=== PATIENT | female | born 1990 | race Caucasian/White ===

== ENCOUNTER 2018-06-30 06:25 | Inpatient (IN) | payer BC ==
[2018-06-30] MEDS ORDERED: CEFAZOLIN 1 GM INJ (07:00)
[2018-06-30] MEDS ORDERED: DEXAMETHASONE 4 MG/ML 1 ML INJ ×2 (07:00→08:47)
[2018-06-30] MEDS ORDERED: SURGIFOAM POWDER 1 GM KIT (07:28)
[2018-06-30] MEDS: HEPARIN 1000 UNITS/ML 10 ML INJ (07:29)
[2018-06-30] MEDS: GELATIN SIZE 100 SPONGE (07:29)
[2018-06-30] MEDS: THROMBIN 5000 UNIT VIAL (07:29)
[2018-06-30] MEDS: CEFAZOLIN 1 GM INJ (07:29)
[2018-06-30] MEDS ORDERED: BUPIVACAINE 0.25%/EPI (SDV) 30 ML INJ (07:29)
[2018-06-30] MEDS: CA CHLORIDE 10% 10 ML SYRINGE (07:29)
[2018-06-30] MEDS ORDERED: SUCCINYLCHOLINE CHLORIDE 100 MG/5 ML SYG IV (07:58)
[2018-06-30] MEDS ORDERED: ROCURONIUM 50 MG INJ ×2 (07:58→09:15)
[2018-06-30] MEDS ORDERED: PROPOFOL 20 ML (07:58)
[2018-06-30] MEDS ORDERED: LIDOCAINE 2% (SDV) 5 ML INJ (07:58)
[2018-06-30] MEDS ORDERED: MIDAZOLAM 1 MG/ML 2 ML INJ (07:59)
[2018-06-30] MEDS ORDERED: HYDROmorphONE 0.5 MG/0.5 ML SYG IV (08:00)
[2018-06-30] MEDS ORDERED: PROCHLORPERAZINE 10 MG TAB PO (08:00)
[2018-06-30] MEDS ORDERED: ACETAMINOPHEN 325 MG TAB PO (08:00)
[2018-06-30] MEDS ORDERED: DIPHENHYDRAMINE 25 MG CAP PO (08:00)
[2018-06-30] MEDS ORDERED: NALOXONE (0.4 MG/ML) INJ IV (08:00)
[2018-06-30] MEDS ORDERED: DIPHENHYDRAMINE 50 MG INJ IV ×2 (08:00→12:00)
[2018-06-30] MEDS ORDERED: FAMOTIDINE 20 MG INJ (08:47)
[2018-06-30] MEDS ORDERED: ONDANSETRON 4 MG INJ (08:47)
[2018-06-30] MEDS ORDERED: HYDROmorphONE 2 MG/ML SYG (10:05)
[2018-06-30] MEDS ORDERED: SUGAMMADEX SODIUM 200 MG/2 ML VIAL IV (11:09)
[2018-06-30] MEDS ORDERED: EPHEDrine SULFATE 50 MG/5 ML SYG (11:10)
[2018-06-30] MEDS ORDERED: FENTAnyl 50 MCG/ML VIAL (11:46)
[2018-06-30] MEDS: FENTAnyl 50 MCG/ML VIAL IV ×2 (11:52→12:08)
[2018-06-30] MEDS ORDERED: PROCHLORPERAZINE 10 MG INJ IV (12:00)
[2018-06-30] MEDS ORDERED: HYDROmorphONE 1 MG/5 ML IV SYRINGE IV ×2 (12:00)
[2018-06-30] MEDS ORDERED: ONDANSETRON 4 MG INJ IV (12:00)
[2018-06-30] MEDS ORDERED: FENTAnyl 50 MCG/ML VIAL IV ×2 (12:00)
[2018-06-30] MEDS: HYDROmorphONE 1 MG/5 ML IV SYRINGE IV (12:14)
[2018-06-30] MEDS: DOCUSATE SODIUM 100 MG CAP PO ×2 (12:17→21:00)
[2018-06-30] MEDS: MEPERIDINE 25 MG INJ IV (12:35)
[2018-06-30] MEDS ORDERED: HYDROmorphONE 0.2 MG/ML PCA (12:52)
[2018-06-30] MEDS: HYDROmorphONE 0.2 MG/ML PCA IV (13:07)
[2018-06-30 14:10] LABS: ADD MAN DIFF? NO
[2018-06-30 14:13] LABS: ABNORMAL IP MESSAGE 1; BASOPHILS % 0.2 % (0.0-2.0); HEMATOCRIT 40.9 % (37.0-47.0); HEMOGLOBIN 13.6 g/dl (12.0-16.0); LYMPHOCYTES # 0.6 10^3/ul (0.8-2.9); LYMPHOCYTES % 3.8 % (15.0-51.0); MEAN CORPUSCULAR HEMOGLOBIN 30.6 pg (29.0-33.0); MEAN CORPUSCULAR HGB CONC 33.3 g/dl (32.0-37.0); MEAN CORPUSCULAR VOLUME 92.1 fl (82.0-101.0); MEAN PLATELET VOLUME 8.8 fl (7.4-10.4); MONOCYTE # 0.2 10^3/ul (0.3-0.9); NEUTROPHIL # 14.1 10^3/ul (1.6-7.5); NEUTROPHILS % 94.5 % (39.0-77.0); PLATELET COUNT 266 10^3/UL (140-415); RED BLOOD COUNT 4.44 10^6/ul (4.20-5.40); RED CELL DISTRIBUTION WIDTH 12.3 % (11.5-14.5)
[2018-06-30 14:13] LABS: WHITE BLOOD COUNT 14.9 10^3/ul (4.8-10.8)
[2018-06-30 14:18] LABS: POSITIVE DIFF @See below
[2018-06-30 14:32] LABS: ANION GAP 11 (8-16); BLOOD UREA NITROGEN 13 mg/dl (7-20); CALCIUM 8.8 mg/dl (8.4-10.2); CARBON DIOXIDE 27 mmol/L (21-31); CHLORIDE 103 mmol/L (97-110); CREATININE 0.79 mg/dl (0.44-1.00); GLUCOSE 120 mg/dl (70-220); SODIUM 137 mmol/L (135-144)
[2018-06-30] MEDS: CEFAZOLIN 1 GM/50 ML (PMX) 50 ML IVPB ×2 (15:39→22:59)
[2018-06-30] MEDS: D5W-0.45 NACL + KCL 20 MEQ 1,000 ML IV (15:40)
[2018-06-30] MEDS: ONDANSETRON 4 MG INJ IV (22:59)
[2018-07-01] MEDS: D5W-0.45 NACL + KCL 20 MEQ 1,000 ML IV (00:33)
[2018-07-01] MEDS: HYDROmorphONE 0.2 MG/ML PCA IV (03:55)
[2018-07-01 05:07] LABS: ADD MAN DIFF? NO
[2018-07-01 05:13] LABS: BASOPHILS % 0.3 % (0.0-2.0); EOSINOPHILS % 0.1 % (0.0-7.0); HEMOGLOBIN 12.9 g/dl (12.0-16.0); LYMPHOCYTES # 1.8 10^3/ul (0.8-2.9); LYMPHOCYTES % 14.7 % (15.0-51.0); MEAN CORPUSCULAR HEMOGLOBIN 30.6 pg (29.0-33.0); MEAN CORPUSCULAR HGB CONC 33.1 g/dl (32.0-37.0); MEAN CORPUSCULAR VOLUME 92.6 fl (82.0-101.0); MEAN PLATELET VOLUME 8.9 fl (7.4-10.4); MONOCYTE # 1.3 10^3/ul (0.3-0.9); MONOCYTES % 11.2 % (0.0-11.0); NEUTROPHIL # 8.8 10^3/ul (1.6-7.5); NEUTROPHILS % 73.3 % (39.0-77.0); PLATELET COUNT 274 10^3/UL (140-415); RED BLOOD COUNT 4.21 10^6/ul (4.20-5.40); RED CELL DISTRIBUTION WIDTH 12.1 % (11.5-14.5)
[2018-07-01 05:32] LABS: ANION GAP 11 (8-16); BLOOD UREA NITROGEN 8 mg/dl (7-20); CALCIUM 8.9 mg/dl (8.4-10.2); CARBON DIOXIDE 29 mmol/L (21-31); CHLORIDE 103 mmol/L (97-110); GLUCOSE 111 mg/dl (70-220); POTASSIUM 4.2 mmol/L (3.5-5.1); SODIUM 139 mmol/L (135-144)
[2018-07-01] MEDS: CEFAZOLIN 1 GM/50 ML (PMX) 50 ML IVPB (05:42)
[2018-07-01] MEDS: PANTOPRAZOLE (EC) 40 MG TAB PO (05:43)
[2018-07-01] MEDS: HYDROCODONE/APAP (5/325) TAB PO ×5 (06:30→20:17)
[2018-07-01] MEDS: CEPASTAT LOZENGE MT (08:11)
[2018-07-01] MEDS: DOCUSATE SODIUM 100 MG CAP PO ×2 (08:11→20:17)
[2018-07-01] MEDS: CYCLOBENZAPRINE 10 MG TAB PO (16:27)
[2018-07-02] MEDS: HYDROCODONE/APAP (5/325) TAB PO ×4 (00:35→16:37)
[2018-07-02] MEDS: CYCLOBENZAPRINE 10 MG TAB PO (01:28)
[2018-07-02] MEDS: PANTOPRAZOLE (EC) 40 MG TAB PO (05:58)
[2018-07-02] MEDS: AL HYDROX/MG HYDROX/SIMETH 30 ML CUP PO (09:49)
[2018-07-02] MEDS: DOCUSATE SODIUM 100 MG CAP PO (09:50)
[2018-07-02] MEDS: BISACODYL 10 MG SUPP PR (13:33)
== END 2018-07-02 17:35 | disposition home or self-care (01) | DRG 460 ==
LOC: REC 06:25 → MS1 13:29
PROC: 0SG30A0 Fusion of Lumbosacral Joint with Interbody Fusion Device, Anterior Approach, Anterior Column, Open Approach (ICD-10-PCS; principal; 2018-06-30 08:00)
PROC: 0ST40ZZ Resection of Lumbosacral Disc, Open Approach (ICD-10-PCS; 2018-06-30 08:00)
PROC: 07DR3ZZ Extraction of Iliac Bone Marrow, Percutaneous Approach (ICD-10-PCS; 2018-06-30 08:00)
DX: Q76.2 Congenital spondylolisthesis (principal); M51.37 Other intervertebral disc degeneration, lumbosacral region; M47.817 Spondylosis without myelopathy or radiculopathy, lumbosacral region
CPT/HCPCS: 72110; 72114; 80048; 84703; 85025; 86850; 86900; 86901; 86920; 86999; 87086; 97116; 97161; 97530